=== PATIENT | male | born 1960 | race Caucasian/White ===

== ENCOUNTER 2017-11-30 16:07 | Emergency (ER) | payer MEDICAID ==
[~2017-11-30] VITALS: Ht 175.3 cm; Wt 79.4 kg
[~2017-11-30 16:07] MED LIST: BUPR-10 PO; HYDR25CA1 PO; THO25 PO
[2017-11-30 16:46] VITALS: BP 128/79
--- NOTE | 2017-11-30 16:55 | NUR ---
PATIENT WHEELCHAIR ASSISTED TO BED 4.
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
[2017-11-30] MEDS ORDERED: KETOROLAC 30 MG/ML VIAL ONE (17:50)
[2017-11-30] MEDS: KETOROLAC 30 MG/ML VIAL IM ONE (17:54)
--- NOTE | 2017-11-30 17:55 | NUR ---
MEDICATED FOR RT.HIP PAIN
--- NOTE | 2017-11-30 18:30 | NUR ---
PT. IN ROOM STATES " THE TORADOL DIDNT HELP I STILL HAVE A LOT OF PAIN I CAN NOT GO TO XRAY WITH THIS PAIN". ER PA NOTIFIED, NEW ORDERS IN PLACE. PT. STATES HE HAS 9/10 PAIN . WILL MONITOR
[2017-11-30] MEDS: MORPHINE SULFATE 4 MG/ML SYR IM ONE (18:35)
--- NOTE | 2017-11-30 19:41 | NUR ---
PT IN WHEELCHAIR IN ROOM, W/ SPASMS PT STATES HE IS SHAKING FROM PAIN. PA NOTIFIED, ANS STATES PT HAS HX OF MUSCLE SPASMS. WILL FOLLOW ANY NEW ORDERS.
--- NOTE | 2017-11-30 20:30 | NUR ---
ATTEMPT TO GIVE PT D/C PAPERS AND RX PT DOES NOT WANT RX PA HAS GIVEN. PA NOTIFIED NO CHANGES IN ORDERS, ATTMPT TO EDUCATE PT ON PAIN CONTROL AND TO FOLLOW UP W/ PCP.
[2017-11-30 20:40] VITALS: BP 132/74
--- NOTE | 2017-11-30 20:43 | NUR ---
Patient discharged with v/s stable. Written and verbal after care instructions given and explained. Patient alert, oriented and verbalized understanding of instructions. Wheel Chair TO LOBBY. All questions addressed prior to discharge. ID band removed. Patient advised to follow up with PMD. Rx of IBUPROFEN, NORCO given. Patient educated on indication of medication including possible reaction and side effects. Opportunity to ask questions provided and answered. PT REFUSED TO SIGN D/C PAPERS BUT RECIEVED INSTRUCTIONS AND RX
== END 2017-11-30 20:43 | disposition home or self-care (01) ==
LOC: MED 16:07
DX: M25.551 Pain in right hip (principal)
CPT/HCPCS: 73502; 96372; 99284; J1885; J2270

== ENCOUNTER 2017-12-11 11:08 | Emergency (ER) | payer MEDICAID ==
[~2017-12-11] VITALS: Ht 175.3 cm; Wt 77.6 kg
--- NOTE | 2017-12-11 11:08 | NUR ---
Patient BIBA BLS, transferred to bed 1. RN evaluating patient at bedside.
[2017-12-11 11:09] VITALS: BP 132/83
--- NOTE | 2017-12-11 11:10 | NUR ---
Report given to Nathalia NASCIMENTO.
--- NOTE | 2017-12-11 11:15 | NUR ---
PT BIBA FOR GENERALIZED WEAKNESS, LABORED BREATHING, AND GENERALIZED PAIN. PATIENT APPEARS TO BE LABORED BREATHING AND GRIMMACING IN PAIN. PATIENT REPORTS HX OF TB, HEROINE USE, AND NAUSEA. SKIN IS PINK/WARM/DRY; AAOX4 WITH EVEN AND STEADY GAIT; LUNGS CLEAR BL; HR EVEN AND REGULAR; PT DENIES ANY FEVER, CP, OR COUGH AT THIS TIME; PATIENT STATES PAIN OF 10/10 AT THIS TIME; VSS; PATIENT POSITIONED FOR COMFORT; HOB ELEVATED; BEDRAILS UP X2; BED DOWN. ER MD MADE AWARE OF PT STATUS.
[2017-12-11] MEDS ORDERED: HYDROmorphone 1 MG/ML AMP IVP ONE (12:05)
[2017-12-11] MEDS ORDERED: KETOROLAC 60 MG/2 ML VIAL IM ONE (12:05)
[2017-12-11] MEDS ORDERED: diphenhydrAMINE 50 MG/ML VIAL IVP ONE (12:05)
--- NOTE | 2017-12-11 12:15 | NUR ---
PATIENT COMPLAINS OF SEVERE PAIN. ED MD MADE AWARE.
--- NOTE | 2017-12-11 13:00 | NUR ---
PATIENT STILL COMPLAINING OF SEVERE PAIN. ED MD MADE AWARE.
--- NOTE | 2017-12-11 14:09 | NUR ---
PATIENT COMPLAINS OF PAIN. I ADVISED MD AWARE. OFFERED BLANKET, PATIENT DECLINED.
[2017-12-11] MEDS ORDERED: MORPHINE SULFATE 2 MG/ML SYR IM ONE (14:35)
[2017-12-11 16:46] VITALS: BP 140/90
--- NOTE | 2017-12-11 16:47 | NUR ---
Patient discharged with PAIN 04/13. Written and verbal after care instructions given and explained. Patient alert, oriented and verbalized understanding of instructions. Wheel Chair Assisted with to home. All questions addressed prior to discharge. ID band removed. Patient advised to follow up with PMD. Rx of VOLTAREN given. Patient educated on indication of medication including possible reaction and side effects. Opportunity to ask questions provided and answered.
== END 2017-12-11 16:47 | disposition home or self-care (01) ==
LOC: MED 11:08
DX: G89.29 Other chronic pain (principal); M25.561 Pain in right knee; K21.9 Gastro-esophageal reflux disease without esophagitis; Z79.899 Other long term (current) drug therapy
CPT/HCPCS: 73552; 96372; 96374; 96375; 99284; J1170; J1200; J1885; J2270